=== PATIENT | male | born 1945 | race Two or more races ===

== ENCOUNTER 2024-12-13 13:44 | Emergency (ER) | payer OTHER ==
[~2024-12-13] VITALS: Ht 165.1 cm; Wt 60.0 kg
[2024-12-13 13:46] VITALS: BP 154/98; PULSE 111; RESP 15; TEMP 98.1; O2SAT 97
--- NOTE | 2024-12-13 14:40 | DVH ---
EXAM: CT HEAD WITHOUT CONTRAST HISTORY: INJURY COMPARISON: None TECHNIQUE: Noncontrast axial CT images of the head were performed. Sagittal and coronal reformatted i mages were obtained. This CT exam was performed using 1 or more of the following dose reduction techn iques: Automated exposure control, adjustment of the mA and/or kv according to patient size, or the u se of iterative reconstruction techniques. Radiation Dose: CTDI volume is 53.39 mGy. Dose-length product is 1050.63 mGy*cm FINDINGS: No intracranial hemorrhage, mass, midline shift, hydrocephalus, or evidence of acute large vessel inf arct. There is mild global brain atrophy. There is mild decreased attenuation in the periventricular white matter. There are thick atherosclerotic calcifications of the cavernous ICAs and left MCA orig in. There are mucosal thickening and mucous retention cyst in the right maxillary sinus with surround ing bony remodeling; mild mucosal thickening in the left ethmoid sinuses. The bilateral mastoid air c ells and middle ear spaces are clear. No cranial fracture or scalp edema. IMPRESSION: 1. Mild global brain atrophy and chronic ischemic changes without evidence of acute intracranial proc ess. 2. Thick atherosclerotic calcifications of the cavernous ICAs and left MCA origin. 3. Moderate to severe chronic right maxillary sinus disease and mild left ethmoid sinus disease.
== END 2024-12-13 14:58 | disposition left against medical advice (07) ==
LOC: ER 13:44
DX: S09.90XA Unspecified injury of head, initial encounter (principal); J32.0 Chronic maxillary sinusitis; X58.XXXA Exposure to other specified factors, initial encounter; Y93.89 Activity, other specified; Y92.89 Other specified places as the place of occurrence of the external cause; Y99.8 Other external cause status
CPT/HCPCS: 70450